=== PATIENT | male | born 1965 | race Caucasian/White ===

== ENCOUNTER → 2016-12-11 | Outpatient (CLI) | payer OTHER, MEDICAID | LOC: FIMAGING 07:55 | PROVIDERS: ATTEND Physician Assistant | DX: M75.101 Unspecified rotator cuff tear or rupture of right shoulder, not specified as traumatic (principal); Y07.9 Unspecified perpetrator of maltreatment and neglect; M25.511 Pain in right shoulder; G89.29 Other chronic pain ==